=== PATIENT | male | born 1985 ===

== ENCOUNTER 2020-12-27 16:30 | Outpatient (CLI) | payer BC | END 2020-12-27 16:31 | disposition home or self-care (01) | LOC: SLEEPLAB 16:30 | PROVIDERS: ATTEND Family Medicine Sports Medicine | DX: G47.9 Sleep disorder, unspecified (principal); R06.83 Snoring; G47.10 Hypersomnia, unspecified | CPT/HCPCS: 95806 ==

== ENCOUNTER 2021-02-14 19:00 | Outpatient (CLI) | payer BC | END 2021-02-14 19:01 | disposition home or self-care (01) | LOC: SLEEPLAB 19:00 | PROVIDERS: ATTEND Family Medicine Sports Medicine | DX: G47.9 Sleep disorder, unspecified (principal); R06.83 Snoring; G47.00 Insomnia, unspecified; G47.10 Hypersomnia, unspecified; G47.11 Idiopathic hypersomnia with long sleep time | CPT/HCPCS: 95810 ==